=== PATIENT | male | born 1980 | race Caucasian/White ===

== ENCOUNTER 2019-08-29 11:04 | Emergency (ER) | payer SELFPAY ==
[~2019-08-29] VITALS: Ht 172.7 cm; Wt 88.5 kg
[2019-08-29 11:38] VITALS: BP 146/110
[2019-08-29] MEDS ORDERED: SODIUM CHLORIDE 0.9% 1,000 ML IV ONE (12:39)
[2019-08-29] MEDS ORDERED: ASPirin 81 mg TAB PO ONE (12:45)
[2019-08-29 12:59] LABS: Basophils # (auto) 0 uL; Eosinophils # (auto) 0.1 uL; Eosinophils % (auto) 0.8 % (0.0-7.0); Neutrophils % (auto) 71.6 % (37.0-80.0)
[2019-08-29 13:01] LABS: Basophils % (auto) 0.4 % (0.0-2.0); Hematocrit 53.5 % (41.0-53.0); Hemoglobin 18.1 g/dL (13.5-17.5); Lymphocytes # (auto) 2.3 uL; Lymphocytes % (auto) 20.5 % (10.0-50.0); Mean Corpuscular Hemoglobin 31.1 pg (28.0-32.0); Mean Corpuscular Hgb Conc. 33.8 g/dL (32.0-36.0); Monocytes # (auto) 0.8 uL; Monocytes % (auto) 6.7 % (0.0-12.0); Neutrophils # (auto) 8.1 uL; Nucleated Red Blood Cells % 0.2 %; Platelet Count (auto) 337 10^3/uL (140-450); Red Blood Cells 5.81 10^6/uL (4.5-5.90); White Blood Cell 11.3 10^3/uL (4.4-10.8)
[2019-08-29 13:52] LABS: Albumin 4.2 g/dL (3.4-5.0); Magnesium 2.4 mg/dL (1.6-2.6); Potassium 4.4 mmol/L (3.5-5.1)
[2019-08-29 13:57] LABS: BUN/Creatinine Ratio 11.7; Bilirubin, Total 0.6 mg/dL (0.2-1.0); Total Protein 8.4 g/dL (6.4-8.2)
[2019-08-29 14:17] LABS: Calcium 9.9 mg/dL (8.5-10.1)
[2019-08-29] MEDS ORDERED: KETOROLAC TROMETH 30 MG/ML 1ML VIAL IV ONE (15:30)
[2019-08-29] MEDS ORDERED: METOCLOPRAMIDE HCL 5MG/ml INJ 2ml VIAL IV ONE (15:30)
== END 2019-08-29 17:06 | disposition home or self-care (01) ==
LOC: ER 11:04
DX: R07.89 Other chest pain (principal); I10 Essential (primary) hypertension; K21.9 Gastro-esophageal reflux disease without esophagitis; F17.210 Nicotine dependence, cigarettes, uncomplicated
CPT/HCPCS: 36415; 71046; 80053; 83735; 84443; 84484; 85025; 85379; 93005